=== PATIENT | male | born 1950 | race Caucasian/White ===

== ENCOUNTER 2018-01-09 07:41 | Emergency (ER) | payer MEDICARE, BC ==
[~2018-01-09] VITALS: Ht 170.2 cm; Wt 100.0 kg
[2018-01-09] MEDS ORDERED: ATORVASTATIN CA40 MG PO (08:41)
[2018-01-09] MEDS ORDERED: FENOFIBRATE145 MG PO (08:41)
[2018-01-09] MEDS ORDERED: LOSARTAN POT25 MG PO (08:42)
[2018-01-09] MEDS ORDERED: OMEPRAZOLE10 MG PO (08:42)
[2018-01-09] MEDS ORDERED: ADULT ASPIRIN R81 MG PO (08:43)
[2018-01-09 08:51] LABS: INFLUENZA A NONE DETECTED (NONE DETECT); INFLUENZA B NONE DETECTED (NONE DETECT)
[2018-01-09] MEDS ORDERED: CEPHALEXIN500 MG PO (09:09)
[2018-01-09] MEDS ORDERED: ROBITUSSIN AC10 ML PO (09:09)
[2018-01-09 09:38] VITALS: BP 159/88
== END 2018-01-09 09:48 | disposition home or self-care (01) ==
LOC: ED 07:41
PROVIDERS: Emergency Medicine
DX: J06.9 Acute upper respiratory infection, unspecified (principal); I88.9 Nonspecific lymphadenitis, unspecified; I10 Essential (primary) hypertension; E78.5 Hyperlipidemia, unspecified; K21.9 Gastro-esophageal reflux disease without esophagitis

== ENCOUNTER 2023-12-08 10:05 | Emergency (ER) | payer MEDICARE, BC ==
[~2023-12-08] VITALS: Ht 170.2 cm; Wt 92.0 kg
[~2023-12-08 10:05] MED LIST: ADULT ASPIRIN R81 MG PO; ATORVASTATIN CA40 MG PO; CEPHALEXIN500 MG PO; FENOFIBRATE145 MG PO; LOSARTAN POT25 MG PO; OMEPRAZOLE10 MG PO; ROBITUSSIN AC10 ML PO
[2023-12-08 10:17] VITALS: BP 148/85
[2023-12-08] MEDS ORDERED: TAMSULOSIN0.4 MG PO (10:21)
[2023-12-08] MEDS ORDERED: AMLODIPINE BESYL5 MG PO (10:21)
[2023-12-08] MEDS ORDERED: TOPROL XL25 M1 PO (10:21)
[2023-12-08] MEDS ORDERED: GEMTESA75 MG (10:23)
[2023-12-08 10:30] VITALS: BP 135/82
[2023-12-08] MEDS ORDERED: TRAMADOL HYDROC50 M1 PO (12:45)
[2023-12-08 12:54] VITALS: BP 135/82
== END 2023-12-08 12:59 | disposition home or self-care (01) ==
LOC: ED 10:05
DX: S43.51XA Sprain of right acromioclavicular joint, initial encounter (principal); S40.011A Contusion of right shoulder, initial encounter; I10 Essential (primary) hypertension; E78.5 Hyperlipidemia, unspecified; W01.0XXA Fall on same level from slipping, tripping and stumbling without subsequent striking against object, initial encounter

== ENCOUNTER 2023-12-12 15:06 | Emergency (ER) | payer MEDICARE, BC ==
[~2023-12-12] VITALS: Ht 170.2 cm; Wt 92.0 kg
[2023-12-12] VITALS (13 sets, daily range): BP systolic 114–152; BP diastolic 68–109
[~2023-12-12 15:06] MED LIST changes: +AMLODIPINE BESYL5 MG PO; +GEMTESA75 MG; +TAMSULOSIN0.4 MG PO; +TOPROL XL25 M1 PO; +TRAMADOL HYDROC50 M1 PO
[2023-12-12 17:23] LABS: BASO% 0.4 % (0-3); EOS% 4.2 % (0-8); HEMATOCRIT 38.2 % (39.0-50.0); HEMOGLOBIN 12.6 g/dl (14.0-18.0); IMMATURE GRANULOCYTES 0.2 % (0.0-5.0); LYMPH% 29.9 % (15-41); MONO% 15.3 % (2-13); NEUT# 2.36 thou/uL (1.82-7.42); RED BLOOD COUNT 3.94 mill/uL (4.70-6.10); RED CELL DISTRI WIDTH 12.4 % (11.5-15.5)
[2023-12-12 17:40] LABS: ALBUMIN 4.5 g/dL (3.2-5.0); ALKALINE PHOSPHATASE 43 u/l (38-126); ANION GAP 13 (6-22 (CALC)); BILIRUBIN, TOTAL 0.6 mg/dL (0.2-1.3); BUN 29 mg/dL (8-23); BUN/CREATININE RATIO 20 (12-20 (CALC)); CARBON DIOXIDE 26 mmol/l (22-30); CHLORIDE 103 mmol/l (95-108); CREATININE 1.5 mg/dL (0.7-1.3); GFR FOR AFR.AMER. 55 ML/MIN (>=60 (CALC)); GFR OTHER RACES 46 ML/MIN (>=60 (CALC)); POTASSIUM 4.2 mmol/l (3.5-5.1); SGOT/AST 30 u/l (19-48); SODIUM 138 mmol/l (137-146); TOTAL PROTEIN 7.7 g/dL (6.3-8.2)
== END 2023-12-12 20:42 | disposition home or self-care (01) ==
LOC: ED 15:06
PROVIDERS: Emergency Medicine
DX: S22.41XA Multiple fractures of ribs, right side, initial encounter for closed fracture (principal); S20.221A Contusion of right back wall of thorax, initial encounter; I10 Essential (primary) hypertension; E78.5 Hyperlipidemia, unspecified; K21.9 Gastro-esophageal reflux disease without esophagitis; W01.0XXA Fall on same level from slipping, tripping and stumbling without subsequent striking against object, initial encounter; Y92.002 Bathroom of unspecified non-institutional (private) residence as the place of occurrence of the external cause